=== PATIENT | male | born 1970 | race African-American/Black ===

== ENCOUNTER 2021-05-14 13:52 | Emergency (ER) | payer BC ==
[~2021-05-14] VITALS: Ht 177.8 cm; Wt 80.0 kg
[2021-05-14] MEDS ORDERED: ACETAMINOPHEN 325MG TABLET PO STA (14:21)
[2021-05-14] MEDS ORDERED: SODIUM CHLORIDE 0.9% 1,000 ML IV ONE (14:30)
[2021-05-14 14:57] LABS: HEMATOCRIT. 43.5 % (42.0-52.0); MEAN CORPUSCULAR HEMOGLOBIN 31.3 pg (28.0-32.0); MEAN CORPUSCULAR VOLUME 90.9 fL (80.0-94.0); PLATELET 159 x1000/uL (130-400); RED BLOOD CELL COUNT 4.78 mill/uL (4.7-6.1); RED CELL DISTRIBUTION WIDTH 13.1 % (11.6-14.6)
[2021-05-14 15:05] LABS: CHLORIDE 107 mEq/L (98-107)
[2021-05-14 15:30] LABS: CLARITY URINE CLEAR (CLEAR); COLOR URINE DARK YELLOW (YELLOW); KETONES URINE TRACE (NEGATIVE); LEUKOCYTE ESTERASE URINE NEGATIVE (NEGATIVE); NITRITE URINE NEGATIVE (NEGATIVE); OCCULT BLOOD URINE NEGATIVE (NEGATIVE); PROTEIN URINE 1+ (NEGATIVE); SPECIFIC GRAVITY URINE 1.027 (1.005-1.030)
[2021-05-14 17:14] LABS: PLATELET ESTIMATE NORMAL
[2021-05-14 18:26] VITALS: BP 105/71
== END 2021-05-14 19:57 | disposition home or self-care (01) ==
LOC: ER 13:52
DX: R55 Syncope and collapse (principal); R51.9 Headache, unspecified; Z20.822 Contact with and (suspected) exposure to COVID-19; R00.0 Tachycardia, unspecified; Z91.81 History of falling
CPT/HCPCS: 36415; 71045; 80053; 81003; 83690; 84484; 85025; 86703; 87426; 93005; 96360; 99285; J7030